=== PATIENT | female | born 1980 | race American Indian/Alaskan Native ===

== ENCOUNTER 2018-01-28 13:23 | Emergency (ER) | payer BC, MEDICAID ==
[2018-01-28 13:36] VITALS: BMI 25.0
[2018-01-28 13:38] VITALS: BP 102/69; PULSE 63; RESP 18; TEMP 98.3; O2SAT 100
[2018-01-28] MEDS ORDERED: MethylPREDNISolone 40 mg Vial IM STA (14:54)
[2018-01-28] MEDS ORDERED: MethylPREDNISolone 40 mg Vial ONE (15:03)
--- NOTE | 2018-01-28 15:41 | C.PDOC ---
History Of Present Illness 37 year old female with PMHx lupus presents to the ED c/o increased joint pain to hands, knees, back associated with skin rash on bilateral knees and scalp for the past 3-4 days. Patient also states having lower left molar pain associated with swelling. Patient denies fever, chills, CP, SOB, numbness, weakness, dysuria, oligouria. Time Seen by Provider: 01/28/18 13:57 Chief Complaint (Nursing): Back Pain History Per: Patient History/Exam Limitations: no limitations Onset/Duration Of Symptoms: Days (3-4) Current Symptoms Are (Timing): Still Present Quality Of Discomfort: "Pain" Severity: None Recent travel outside of the [place]: No Additional History Per: Patient Past Medical History Reviewed: Historical Data, Nursing Documentation, Vital Signs Vital Signs: Last Vital Signs Temp 98.3 F 01/28/18 13:35 Pulse 63 01/28/18 13:35 Resp 18 01/28/18 13:35 BP 102/69 01/28/18 13:35 Pulse Ox 100 01/28/18 15:59 - Medical History PMH: Anxiety, Asthma, Depression, Mitral Valve Prolapse Surgical History: No Surg Hx Family History: States: Unknown Family Hx - Social History Hx Tobacco Use: No Hx Alcohol Use: No Hx Substance Use: No Review Of Systems Constitutional: Negative for: Fever, Chills Cardiovascular: Negative for: Chest Pain, Palpitations Respiratory: Negative for: Cough, Shortness of Breath Gastrointestinal: Negative for: Nausea, Vomiting Musculoskeletal: Positive for: Back Pain, Hand Pain, Leg Pain Skin: Negative for: Rash Neurological: Negative for: Weakness, Numbness Physical Exam - Physical Exam Appears: Non-toxic, No Acute Distress Skin: Normal Color, Warm, Dry, Other (erythematous lesions to bilateral anterior knees and scalp) Head: Atraumatic, Normacephalic Eye(s): bilateral: Normal Inspection Oral Mucosa: Moist Tongue: Normal Appearing, No Swelling Teeth: Other (poor dentition) Gingiva: Swelling (on the left lower gums) Throat: No Erythema, No Exudate Neck: Normal ROM, Supple Chest: Symmetrical Cardiovascular: Rhythm Regular, No Friction Rub, No Murmur Respiratory: Normal Breath Sounds, No Rales, No Rhonchi, No Wheezing Extremity: Normal ROM, No Tenderness, Capillary Refill (< 2 seconds), Swelling ( to bilateral MCP joints) Pulses: Left Radial: Normal, Right Radial: Normal Neurological/Psych: Oriented x3, Normal Speech, Normal Motor, Normal Sensation Gait: Steady ED Course And Treatment O2 Sat by Pulse Oximetry: 100 (ON RA) Pulse Ox Interpretation: Normal Medical Decision Making Medical Decision Making: Plan: * Amoxicillin 500 mg PO * Solumedrol 80 mg IM * Toradol 30 mg IM Disposition - Disposition Referrals: Francisco Cerrato MD [Staff Provider] - Disposition: HOME/ ROUTINE Disposition Time: 15:37 Condition: GOOD Additional Instructions: Follow up with the PMD and [facility] [employer] [facility] within 1-2 days. Return if worsened. 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 - Scribe Statement The provider has reviewed the documentation as recorded by the Scribe Reinaldo Candelaria All medical record entries made by the Scribyung were at my direction and personally dictated by me. I have reviewed the chart and agree that the record accurately reflects my personal performance of the history, physical exam, medical decision making, and the department course for this patient. I have also personally directed, reviewed, and agree with the discharge instructions and disposition.
== END 2018-01-28 15:55 | disposition home or self-care (01) ==
LOC: C.ER 13:23
DX: M32.9 Systemic lupus erythematosus, unspecified (principal); K04.7 Periapical abscess without sinus
CPT/HCPCS: 96372; 99283; J1885; J2920

== ENCOUNTER 2018-10-25 13:30 | Emergency (ER) | payer BC ==
[2018-10-25 13:30] VITALS: BMI 25.0
[2018-10-25 13:37] VITALS: TEMP 99; O2SAT 100
[2018-10-25] MEDS ORDERED: Aspirin 325 mg EC Tablets PO STA (14:30)
[2018-10-25] MEDS ORDERED: Sodium Chloride 0.9% 1,000 ML IV ONE (14:30)
--- NOTE | 2018-10-25 14:54 | C.PDOC ---
History Of Present Illness Patient is a 38 year old female, with a PMHx of lupus, who presents to the ED c/o one week history of chest pressure and epigastric pain. Patient describes the chest pressure as constant, non-radiating and worse with deep inspiration and leaning forward. The epigastric pain is described as "touching a wound." Admits to constipation. Patient denies any fever, chills, recent illness, SOB, diarrhea, blood in stool, or urinary symptoms. Time Seen by Provider: 10/25/18 14:00 Chief Complaint (Nursing): Abdominal Pain History Per: Patient History/Exam Limitations: no limitations Onset/Duration Of Symptoms: Days (one week) Current Symptoms Are (Timing): Still Present Location Of Pain/Discomfort: Epigastric Quality Of Discomfort: Pressure (chest), "Pain" (epigastric) Associated Symptoms: denies: Fever, Chills, Urinary Symptoms Recent travel outside of the [place]: No Additional History Per: Patient Past Medical History Reviewed: Historical Data, Nursing Documentation, Vital Signs Vital Signs: Last Vital Signs Temp 99.0 F 10/25/18 13:35 Pulse 67 10/25/18 13:35 Resp 20 10/25/18 13:35 BP 120/83 10/25/18 13:35 Pulse Ox 100 10/25/18 13:35 Primary Care Provider: Non [facility] Provider, - Medical History PMH: Anxiety, Asthma, Depression, Mitral Valve Prolapse Surgical History: No Surg Hx Family History: States: Unknown Family Hx - Social History Hx Tobacco Use: No Hx Alcohol Use: No Hx Substance Use: No Review Of Systems Constitutional: Negative for: Fever, Chills Cardiovascular: Positive for: Other (Chest pressure) Respiratory: Negative for: Shortness of Breath Gastrointestinal: Positive for: Abdominal Pain (epigastric) Genitourinary: Negative for: Dysuria, Hematuria Neurological: Positive for: Weakness Physical Exam - Physical Exam Appears: Non-toxic, No Acute Distress, Other (laying on side in pain, otherwise calm ) Skin: Warm, Dry Head: Atraumatic, Normacephalic Oral Mucosa: Moist Neck: Supple Chest: Symmetrical, No Deformity Cardiovascular: Rhythm Regular, No Friction Rub, No Murmur Respiratory: Normal Breath Sounds, No Rales, No Rhonchi, No Wheezing Gastrointestinal/Abdominal: Soft, Tenderness (moderate tenderness in epigastric region ), No Distention, No Guarding, No Rebound Extremity: No Tenderness Neurological/Psych: Oriented x3, Normal Speech, Normal Cognition ED Course And Treatment - Laboratory Results Result Diagrams: 10/25/18 14:51 10/25/18 14:51 ECG: Viewed By Me ECG Rhythm: Sinus Rhythm ECG Interpretation: Normal, No Acute Changes Rate From EC O2 Sat by Pulse Oximetry: 100 (on RA) Pulse Ox Interpretation: Normal - Other Rad CXR X-Ray: Viewed By Me, Read By Radiologist Interpretation: HISTORY: chest pain. COMPARISON: None available. TECHNIQUE: Chest PA and lateral, 2 views. FINDINGS: LUNGS: No focal consolidation. Please note that chest x-ray has limited sensitivity for the detection of pulmonary masses. PLEURA: No significant pleural effusion identified. No definite pneumothorax . CARDIOVASCULAR: The cardiomediastinal silhouette appears within normal limits of size. No atherosclerotic calcification present. OSSEOUS STRUCTURES: No acute osseous abnormality identified. VISUALIZED UPPER ABDOMEN: Unremarkable. OTHER FINDINGS: None. IMPRESSION: No acute findings identified. Medical Decision Making Medical Decision Making: Plan: EKG Labs CXR UA ASA 325mg PO IV Fluids CXR without acute process. Labs ok, troponin negative, D-dimer negative. On reevaluation, patient resting comfortable, laughing, denies chest pressure. Mild epigastric tenderness to deep palpation, consistent with gastritis. Patient comfortable going home with PPI and GI follow up. Disposition - Disposition Disposition: HOME/ ROUTINE Disposition Time: 16:54 Condition: GOOD Additional Instructions: You were seen in the ED for chest pressure and abdominal pain. Your labs, EKG, and chest x-ray were reassuring that the chest pressure is not a heart problem. Your labs also showed no acute findings that could be causing your abdominal pain. Take the prescribed medications to help with your abdominal discomfort. Ea t plenty of fiber (vegetables, whole grains), drink water, and avoid rice as it can be constipating. You can also take the prescribed laxative to help with constipation. Follow up with you PMD in the next week. Return to ED for any worsening symptoms, fever, blood in stool. 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 - Scribe Statement The provider has reviewed the documentation as recorded by the Melba Feldman All medical record entries made by the Hanibyung were at my direction and personally dictated by me. I have reviewed the chart and agree that the record accurately reflects my personal performance of the history, physical exam, medical decision making, and the department course for this patient. I have also personally directed, reviewed, and agree with the discharge instructions and disposition.
[2018-10-25 14:57] LABS: BASO # 0.1 K/uL (0.0-0.2); BASO % 1.4 % (0.0-2.0); EOS # 0.1 K/uL (0.0-0.7); EOS % 1.5 % (0.0-4.0); HEMOGLOBIN 11.9 g/dL (11.0-16.0); LYMPH # 2.1 K/uL (1.0-4.3); LYMPH % 51.5 % (20.0-40.0); MEAN CELL VOLUME 87.1 fL (81.0-99.0); MEAN CORPUSCULAR HEMOGLOBIN 28.4 pg (27.0-31.0); MEAN CORPUSCULAR HGB CONC 32.6 g/dL (33.0-37.0); MEAN PLATELET VOLUME 8.8 fL (7.2-11.7); MONO # 0.4 K/uL (0.0-0.8); MONO % 9.9 % (0.0-10.0); NEUT # 1.5 K/uL (1.8-7.0); NEUT % 35.7 % (50.0-75.0); NRBC % 0.2 % (0.0-2.0); RBC 4.21 Mil/uL (3.80-5.20); RED CELL DISTRIBUTION WIDTH 12.6 % (11.5-14.5); WHITE BLOOD COUNT 4.1 K/uL (4.8-10.8)
[2018-10-25 15:27] LABS: SQUAMOUS EPITHIAL 6 /hpf (0-5); URINE BILIRUBIN NEGATIVE (NEGATIVE); URINE BLOOD NEGATIVE (NEGATIVE); URINE CLARITY Hazy (Clear); URINE COLOR Yellow (YELLOW); URINE GLUCOSE (UA) NORMAL (Normal); URINE LEUKOCYTE ESTERASE NEG Leu/uL (Negative); URINE PROTEIN NEGATIVE (NEGATIVE); URINE UROBILINOGEN NORMAL mg/dL (0.2-1.0)
[2018-10-25 15:29] LABS: B-TYPE NATRIURETIC PEPTIDE 50.5 pg/mL (0-450)
[2018-10-25 15:39] LABS: ALB/GLOB RATIO 1.4 (1.0-2.1); ALBUMIN 3.8 g/dL (3.5-5.0); ALT/SGPT 14 U/L (9-52); AST/SGOT 28 U/L (14-36); BLOOD UREA NITROGEN 10 mg/dL (7-17); CALCIUM 9.3 mg/dl (8.6-10.4); GFR NON-AFRICAN AMERICAN > 60; LIPASE 63 U/L (23-300)
--- NOTE | 2018-10-25 15:55 | RAD ---
HISTORY: chest pain COMPARISON: None available TECHNIQUE: Chest PA and lateral, 2 views FINDINGS: LUNGS: No focal consolidation. Please note that chest x-ray has limited sensitivity for the detection of pulmonary masses. PLEURA: No significant pleural effusion identified. No definite pneumothorax . CARDIOVASCULAR: The cardiomediastinal silhouette appears within normal limits of size. No atherosclerotic calcification present. OSSEOUS STRUCTURES: No acute osseous abnormality identified. VISUALIZED UPPER ABDOMEN: Unremarkable. OTHER FINDINGS: None. IMPRESSION: No acute findings identified.
[2018-10-25 15:59] LABS: PARTIAL THROMBOPLASTIN TIME 32.8 SECONDS (21-34); PROTHROMBIN TIME 10.7 SECONDS (9.7-12.2)
[2018-10-25 16:03] LABS: D DIMER < 200 ng/mlDDU (0-243)
[2018-10-25 16:21] VITALS: BP 115/76; PULSE 63; RESP 17
--- NOTE | 2018-10-29 21:17 | CARD ---
APPROVED REPORT Date of service: 10/25/2018 EKG Measurement Heart [id number] ID [id number] <Conclusion> Normal sinus rhythm Nonspecific ST and T wave abnormality Abnormal ECG
== END 2018-10-25 17:14 | disposition home or self-care (01) ==
LOC: C.ER 13:30
DX: K29.70 Gastritis, unspecified, without bleeding (principal); F41.9 Anxiety disorder, unspecified; I34.1 Nonrheumatic mitral (valve) prolapse; M32.9 Systemic lupus erythematosus, unspecified
CPT/HCPCS: 71046; 80053; 81001; 83690; 83880; 84484; 85025; 85378; 85610; 85730; 96360; 99284; J7030